=== PATIENT | female | born 1960 | race Caucasian/White ===

== ENCOUNTER 2020-02-03 16:19 | Emergency (ER) | payer OTHER, SELFPAY ==
[2020-02-03 16:21] VITALS: BP 161/87; PULSE 130; RESP 18; TEMP 36.7; O2SAT 98; BMI 20.1
--- NOTE | 2020-02-03 16:36 | EKG12_ITS ---
Test Reason : PALPITATIONS Blood Pressure : / mmHG Vent. Rate : 109 BPM Atrial Rate : 109 BPM P-R Int : 170 ms QRS Dur : 074 ms QT Int : 324 ms P-R-T Axes : 059 084 060 degrees QTc Int : 436 ms Sinus tachycardia Possible Left atrial enlargement Borderline ECG Confirmed by CORDELIA ENRIQUEZ, COLEMAN ([id number]), field map editor DEVONTE BRIGHT ([id number]) on 02/04/2020 1:15:16 PM Referred By: ELIZABETH/SOPHIE Confirmed By:NORA STOREY MD
[2020-02-03 16:44] VITALS: O2SAT 98
--- NOTE | 2020-02-03 16:49 | RAD_ITS ---
STUDY: X-RAY CHEST REASON FOR EXAM: Female, 59 years old. 2 months ago found heart murmur. heart palpitations, dizziness. TECHNIQUE: Single AP portable view of the chest. COMPARISON: None. FINDINGS: The lungs are clear and expanded. There is no demonstrated pleural abnormality. Normal size heart. Normal mediastinum and cecy. Normal visualized pulmonary arteries. Normal visualized aortic arch and descending thoracic aorta. Normal visualized thoracic spine. Normal visualized ribs, clavicles, and shoulders. There is no demonstrated abnormality of the visualized soft tissue structures of the upper abdomen. RAD/Chest 1 View (Portable) IMPRESSION: Normal x-ray examination of the chest. Electronically Signed: Brian Basilio MD at 17:55 EST , Service support ,
[2020-02-03 16:50] LABS: Absolute Lymphocyte Count 0.86 X10^3/uL (0.83-4.51); Absolute Neutrophil Count 8.3 X10^3/uL (2.0-7.7); Basophil# 0.04 X10^3/uL; Basophil% 0.4 % (0-1); Eosinophil# 0.01 X10^3/uL; Eosinophils% 0.1 % (0-5); Hematocrit 43.5 % (37-47); Hemoglobin 14.3 g/dL (12.0-15.0); Lymphocyte # 0.86 X10^3/ul (4.0); Mean Corp Hgb Conc 32.9 g/dL (32-36); Mean Corpuscular Hgb 29.3 pg (27.0-32.0); Mean Corpuscular Volume 89.1 fL (81-99); Mean Platelet Vol. 9.7 fl (6.2-12.0); Monocyte# 0.34 X10^3/uL; Monocyte% 3.5 % (0-10); NRBC Flagged by Analyzer 0 % (0-5); Neutrophil # 8.33 X10^3/uL (2.7-7.7); Neutrophil % 86.8 % (47-70); Platelet Count 251 K/mm3 (150-450); RBC Distribution Width CV 12.5 % (11.6-14.6); Red Blood Count 4.88 M/mm3 (4.2-5.4); White Blood Count 9.6 K/mm3 (4.4-11.0)
--- NOTE | 2020-02-03 16:59 | ED.DCSUM_ITS ---
History of Present Illness Chief Complaint: Palpitations Informant: Patient Narrative: Patient is a 59-year-old previously healthy female who presents to the emergency department for palpitations. She states that started earlier today. She denies ever having this happen. She was found to have an elevated pulse at her PCPs today. She did feel dizzy at that time. She is currently denying the symptoms now. No associated chest pain or shortness of breath. She does occasionally feel chest tightness along the left side of her chest wall. She denies any diaphoresis or nausea/vomiting. No leg swelling or calf pain. No abdominal pain. Denies any recent illness including any cough, cold, congestion. No fevers or chills. Past Medical History - Allergies and Home Meds Allergies/Adverse Reactions: Allergies No Known Allergies Allergy (Verified 02/03/20 16:20) Primary Care Physician: Chgao Fuller DO [Primary Care Provider] - 2 Days Prior records reviewed: Yes Past Medical History: None Smoking Status: Never smoker Review of Systems All systems negative except as indicated General: Denies: Chills, Fever, Sweats Eyes: Denies: Visual changes - bilaterally, Diplopia ENT: Denies: Rhinorrhea, Sore throat Cardiovascular: Reports: Palpitations. Denies: Chest pain Respiratory: Denies: Dyspnea, Cough, Dyspnea on exertion Gastrointestinal: Denies: Abdominal pain, Nausea, Vomiting, Diarrhea, Melena Genitourinary: Denies: Dysuria, Hematuria, Frequency Musculoskeletal: Denies: Myalgias, Back pain, Extremity Pain Skin: Denies: Rash, Wounds Neurological: Denies: Headache, Weakness, Numbness Physical Exam Vital Signs/Narrative: Vital Signs Temp Pulse Resp BP Pulse Ox 02/03/20 16:44 98 02/03/20 16:21 98.1 F 130 H 18 161/87 H 98 Inital Vital Signs reviewed: Yes General: Well nourished, Well developed, No Acute Distress Head: Normocephalic, Atraumatic Eyes: Perrl, EOMI ENT: Moist mucous membranes, No rhinorrhea Neck: Supple, Nontender Cardiovascular: Regular rhythm, No murmurs, Tachycardia Respiratory: No distress, CTA bilaterally, Chest nontender Abdomen: Soft, Nontender, Nondistended, Normal bowel sounds Back: Nontender, Normal Inspection Extremities: Nontender, No edema. Negative for: Calf Tenderness Skin: Normal color, No rash Neurological: Alert, Oriented x3, Cranial nerves II-XII grossly intact, Normal Strength, Normal Sensation Psychological: Normal affect, Normal Mood Diagnostic/Tx/Re-eval - EKG Initial EKG Interpretation: - - Rate of 109 bpm in sinus tachycardia. Normal intervals. Normal axis. No ST elevations or depressions appreciated. No T wave abnormalities. - Medical Decision Making Patient presents to the ED for palpitations and elevated heart rate. Upon arr ival to the emergency department she is a heart rate of 130 bpm but is in no apparent distress. She is not hypotensive with this. She does not appear in any acute distress with a benign physical exam. Will check EKG, chest x-ray and basic lab work. We will give a bolus of IV fluids. Patient's lab work did not reveal any significant acute abnormalities. Troponin within normal limits. X-ray not show any signs of acute consolidation. TSH within normal limits. After bolus of IV fluid she is feeling better and her heart rate did come down into the 70s to 80s. Low concern for PE as she has no shortness of breath and has been satting well on room air. No chest pain throughout ED stay. We will have her follow-up with her PCP. Warning signs and symptoms for which to return to the ED including any worsening of her palpitations, developing any shortness of breath or chest pain are reviewed. She understands and is agreeable this plan. Discharged home in stable condition. All questions answered. ED Disposition - Plan for ED Patient: Disposition: Home or Assisted Living Diagnosis: Palpitations, Sinus tachycardia Instructions: ED Palpitations Referrals: Chago Fuller DO [Primary Care Provider] - 2 Days
[2020-02-03 17:22] LABS: Anion Gap 5 (5-15); BUN 16 mg/dL (7-18); BUN/Creat Ratio 21.2 RATIO (10-20); Calcium,Total 9.1 mg/dL (8.5-10.1); Chloride 107 mmol/L (98-107); Creatinine, Serum 0.76 mg/dL (0.55-1.02); EST Glomerular Filtration Rate 84 mL/min (>60); Est Glom Filt Rate - Afr Amer 102 mL/min (>60); Estimated Creatinine Clearance 64.33 ml/min; Glucose 114 mg/dL (74-106); Magnesium 2.2 mg/dL (1.6-2.6); Potassium 3.5 mmol/L (3.5-5.1); Sodium Level 139 mmol/L (136-145)
[2020-02-03 17:31] VITALS: BP 147/82; PULSE 98; RESP 15; O2SAT 99
[2020-02-03] MEDS: 0.9% Normal Saline 1,000 ML 999 ML IV (17:33)
[2020-02-03 18:00] VITALS: BP 134/79; PULSE 87; RESP 18; O2SAT 98
[2020-02-03 18:18] LABS: Thyroid Stim Hormone (TSH) 1.44 uIU/mL (0.358-3.74)
[2020-02-03 18:32] VITALS: PULSE 87; RESP 18; O2SAT 98
== END 2020-02-03 18:54 | disposition home or self-care (01) ==
PROVIDERS: Emergency Provider Emergency Medicine; PCP Family Medicine
DX: R00.2 Palpitations (principal); R00.0 Tachycardia, unspecified
CPT/HCPCS: 71045; 80048; 83735; 84443; 84484; 85025; 93005; 96360; 99283; J7030; A4216